=== PATIENT | male | born 1935 | race Caucasian/White ===

== ENCOUNTER 2016-08-16 15:58 | Inpatient (IN) ==
[2016-08-16] MEDS ORDERED: Aspirin 81 MG TAB.CHEW PO ONE (16:41)
--- NOTE | 2016-08-16 16:46 | Emergency Department Note ---
Disposition Clinical Impression: Congestive heart failure, AMANDA (acute kidney injury), NSTEMI (non-ST elevated myocardial infarction), Elevated troponin Disposition: Admitted As Inpatient Condition: Good General Adult HPI - General Chief complaint: ED Shortness of Breath/Dyspnea Stated complaint: Weakness, STEPHEN Time Seen by Provider: 08/16/16 16:04 Source: patient, family Mode of arrival: wheelchair Limitations: no limitations Nursing Notes Reviewed: Yes Vital Signs Reviewed: Yes - History of Present Illness Pain Scale: 0 - Related Data Allergies Allergy/AdvReac Type Severity Reaction Status Date / Time No Known Allergies Allergy Verified 08/16/16 16:02 Past Medical History - Past Medical History Medical history: Reports: atrial fibrillation, diabetes, renal disease - Social History Smoking Status: Never smoker Smokeless Tobacco Status: No Alcohol use: Reports: none Drug use: Reports: none Physical Exam - General Limitations: no limitations General appearance: alert Course Vital Signs Temperature 97.8 F 08/16/16 16:00 Pulse Rate 72 08/16/16 16:00 Respiratory Rate 18 08/16/16 16:00 Blood Pressure 117/65 08/16/16 16:00 O2 Sat by Pulse Oximetry 95 08/16/16 16:00 Temperature 97.8 F 08/16/16 16:00 Pulse Rate 64 08/16/16 18:40 Respiratory Rate 18 08/16/16 20:13 Blood Pressure 120/71 08/16/16 20:13 O2 Sat by Pulse Oximetry 99 08/16/16 18:40 Oxygen Delivery Oxygen Delivery Room Air Medical Decision Making - Medical Records none available - Lab Data Lab results reviewed: Yes I reviewed the patient's lab results. Result diagrams: 08/16/16 16:53 08/16/16 16:53 Lab Results 08/16/16 08/16/16 08/16/16 Range/Units 16:53 16:53 16:53 WBC 5.9 (4.3-11.1) K/mcL RBC 4.51 (4.19-5.50) M/mcL Hgb 13.7 (12.9-16.9) g/dL Hct 42.6 (37.5-50.1) % MCV 94.5 (83.0-100.0) fL MCH 30.4 (28.0-33.3) pg MCHC 32.2 (31.6-35.5) g/dL RDW 13.5 (11.5-14.5) % Plt Count 184 (140-400) K/mcL MPV 10.3 (9.4-12.4) fL Immature Gran % 0.3 (0-4) % Seg Neutrophils % 64.5 % Lymphocytes % 21.7 % Monocytes % 9.7 % Eosinophils % 3.1 % Basophils % 0.7 % Neutrophils # 3.8 (1.6-8.9) K/mcL Lymphocytes # 1.3 (0.6-4.6) K/mcL Monocytes # 0.6 (0.0-1.3) K/mcL Eosinophils # 0.2 (0.0-0.6) K/mcL Basophils # 0.0 (0.0-0.2) K/mcL Immature Plt Fraction 5.4 (1.1-6.1) % PT (9.4-12.1) Seconds INR APTT (26.0-36.0) Seconds Sodium 140 (136-145) mEq/L Potassium 3.6 (3.5-4.5) mEq/L Chloride 102 (98-109) mEq/L Carbon Dioxide 24 (19-29) mEq/L BUN 40 H (8-26) mg/dL Creatinine 1.91 H (0.72-1.25) mg/dL Est GFR ( Amer) 42 L (> 60) Est GFR (Non-Af Amer) 34 L (> 60) BUN/Creatinine Ratio 21 (6-26) Glucose 122 H (70-99) mg/dL Calculated Osmolality 301 H (280-300) Calcium 9.6 (8.6-10.8) mg/dL Troponin I 0.11 H* (0-0.03) ng/mL B-Natriuretic Peptide (0-100) pg/mL TSH (0.350-4.840) mcIU/mL 08/16/16 08/16/16 08/16/16 Range/Units 16:53 16:53 16:53 WBC (4.3-11.1) K/mcL RBC (4.19-5.50) M/mcL Hgb (12.9-16.9) g/dL Hct (37.5-50.1) % MCV (83.0-100.0) fL MCH (28.0-33.3) pg MCHC (31.6-35.5) g/dL RDW (11.5-14.5) % Plt Count (140-400) K/mcL MPV (9.4-12.4) fL Immature Gran % (0-4) % Seg Neutrophils % % Lymphocytes % % Monocytes % % Eosinophils % % Basophils % % Neutrophils # (1.6-8.9) K/mcL Lymphocytes # (0.6-4.6) K/mcL Monocytes # (0.0-1.3) K/mcL Eosinophils # (0.0-0.6) K/mcL Basophils # (0.0-0.2) K/mcL Immature Plt Fraction (1.1-6.1) % PT 17.9 H (9.4-12.1) Seconds INR 1.6 APTT 36.8 H (26.0-36.0) Seconds Sodium (136-145) mEq/L Potassium (3.5-4.5) mEq/L Chloride (98-109) mEq/L Carbon Dioxide (19-29) mEq/L BUN (8-26) mg/dL Creatinine (0.72-1.25) mg/dL Est GFR ( Amer) (> 60) Est GFR (Non-Af Amer) (> 60) BUN/Creatinine Ratio (6-26) Glucose (70-99) mg/dL Calculated Osmolality (280-300) Calcium (8.6-10.8) mg/dL Troponin I (0-0.03) ng/mL B-Natriuretic Peptide 513 H (0-100) pg/mL TSH 2.751 (0.350-4.840) mcIU/mL - Radiology Data Radiology results reviewed: Yes I reviewed the patient's radiology results. Attestation Statement - Attestation Attestation: I personally interviewed and examined this patient and my medical decision- making was reviewed with the ED Resident Physician, Dr. Garcia. I agree with the documented findings, disposition and treatment plan as described except to the extent set forth below. Pt is a 80 yo wm, hx CAD/a fib who presents to the ER with c/o grad worsening dyspnea and fatigue with exertion throughout the afternoon today. Pt reports that the only thing which makes it better was rest. Pt denies any episodes of CP /heaviness/pressure either INSPECTOR GLASS OR MIRROR or currently. VSS. Agree with PE findings as documented. Currently, patient is resting comfortably with family at bedside, denies any symptoms at this time no chest pain pressure no shortness of breath. Patient's EKG shows some lateral T-wave inversion concerning for some lateral ischemia, and we have no old EKG for comparison and no old prior records. Patient also with positive troponin at 0.11 in association with mild renal insufficiency. We will contact cardiology in regards to patient's management and consultation. Patient and family request to be admitted here for further cardiac evaluation.
[2016-08-16 16:59] LABS: Basophils % 0.7 %; Eosinophils # 0.2 K/mcL (0.0-0.6); Eosinophils % 3.1 %; Hematocrit 42.6 % (37.5-50.1); Hemoglobin 13.7 g/dL (12.9-16.9); Immature Granulocytes % 0.3 % (0-4); Immature Platelets 5.4 % (1.1-6.1); Lymphocytes # 1.3 K/mcL (0.6-4.6); Lymphocytes % 21.7 %; Mean Corpuscular HGB Conc 32.2 g/dL (31.6-35.5); Mean Corpuscular Hemoglobin 30.4 pg (28.0-33.3); Mean Corpuscular Volume 94.5 fL (83.0-100.0); Mean Platelet Volume 10.3 fL (9.4-12.4); Monocytes # 0.6 K/mcL (0.0-1.3); Monocytes % 9.7 %; Neutrophils # 3.8 K/mcL (1.6-8.9); Platelet Count 184 K/mcL (140-400); Red Blood Count 4.51 M/mcL (4.19-5.50); Red Cell Distribution Width 13.5 % (11.5-14.5); Segmented Neutrophils % 64.5 %
[2016-08-16 17:08] LABS: INR 1.6; Prothrombin Time 17.9 Seconds (9.4-12.1)
[2016-08-16 17:11] LABS: Activated Partial Thrombo Time 36.8 Seconds (26.0-36.0)
[2016-08-16 17:13] LABS: Calcium 9.6 mg/dL (8.6-10.8); Potassium 3.6 mEq/L (3.5-4.5)
--- NOTE | 2016-08-16 17:27 | Emergency Department Note ---
Disposition Clinical Impression: AMANDA (acute kidney injury), NSTEMI (non-ST elevated myocardial infarction), Elevated troponin Congestive heart failure Qualifiers: Congestive heart failure type: unspecified congestive heart failure type Congestive heart failure chronicity: unspecified congestive heart failure chronicity Qualified Code(s): I50.9 - Heart failure, unspecified Disposition: Admitted As Inpatient Condition: Good Referrals: NO,PCP [Primary Care Provider] - Forms: ED Satisfaction Letter Time of Disposition: 19:05 SOB HPI - General Chief Complaint: ED Shortness of Breath/Dyspnea Stated Complaint: Weakness, STEPHEN Time Seen by Provider: 08/16/16 16:04 Source: patient, family Mode of arrival: wheelchair Limitations: no limitations Nursing Notes Reviewed: Yes Vital Signs Reviewed: Yes - History of Present Illness Patient presents emergency room the care of the family for complaint of shortness of breath. He was walking up a hill S station today and got acutely short of breath. Typically does not have this issue. He has a significant cardiac history in the family is concerned about him in the ER for evaluation. Currently denying any symptoms at this point and has not had any symptoms leading up to today. Pt Subjective Complaint: shortness of breath Onset (ago): Just [employer]ISTANT Severity: mild Consistency/Duration: now resolved Improves with: rest Worsens with: exertion, movement Known history of: congestive heart failure Associated symptoms: Denies: chest pain, pain with inspiration, fever, cough, wheezing, sputum production, orthopnea, lower extremity pain, nausea/vomiting, syncope, sense of impending doom Treatment prior to arrival: none Cough present: No - Related Data Allergies Allergy/AdvReac Type Severity Reaction Status Date / Time No Known Allergies Allergy Verified 08/16/16 16:02 All systems ED: reviewed and negative except as stated. Constitutional: Denies: fever, chills Cardiovascular: Reports: dyspnea on exertion. Denies: chest pain, palpitations , orthopnea Respiratory: Denies: dyspnea, wheezes Gastrointestinal: Denies: abdominal pain, nausea, vomiting, diarrhea Genitourinary: Denies: dysuria, frequency Past Medical History - Past Medical History Attestation: Yes The following information was validated with the patient. Source: patient Medical history: Reports: atrial fibrillation, diabetes, renal disease - Social History Smoking Status: Never smoker Smokeless Tobacco Status: No Alcohol use: Reports: none Drug use: Reports: none Physical Exam - General Limitations: no limitations General appearance: alert - Chest Chest inspection: Present: normal inspection, symmetric chest wall rise. Absent : tenderness - Respiratory Respiratory exam: Present: normal lung sounds bilaterally. Absent: respiratory distress, wheezes - Cardiovascular Cardiovascular exam: Present: regular rate, normal rhythm, normal heart sounds - Abdominal Exam Abdominal exam: Present: soft, Non-Tender, normal bowel sounds. Absent: tenderness, distention, guarding, rebound, rigidity, Emerson's sign, Rovsing's sign, tenderness at McBurney's Point - Extremities Exam Extremities exam: Present: normal inspection, full ROM, normal capillary refill. Absent: tenderness, pedal edema - Back Exam Back exam: Present: normal inspection, full ROM - Neurological Exam Neurological exam: Present: alert, oriented X3, CN II-XII intact, normal gait - Skin Skin exam: Present: warm, dry, intact, normal color Course Course Narrative: Patient seen and examined the time of arrival. See history of present illness. 80-year-old male presents emergency room today with complaints of shortness of breath. Patient has a significant cardiac history including ablation approximately 6 months ago as well as several stenting. Patient denied any chest pain or other symptoms today except for that he had the shortness of breath. Patient did not have any symptoms yesterday. Patient notices symptoms today on his walking up a hill at a rest area. Patient on physical exam is in no distress his vital signs are reviewed and are stable he is afebrile. Pulse ox is normal. Head is atraumatic pupils are equal round reactive to light. Trachea is midline no visible signs of JVD or carotid bruit. Lungs are clear to auscultation bilaterally all 4 lung cunningham. Heart is regular. Abdomen is soft nontender nondistended with no guarding or rigidity. Patient has no signs of acute pitting edema. He was also 4 extremities with purpose. He has no neuromotor function deficits at this time. Pulses in the radial DP and PT distributions are normal. Physical exam is benign at this point but there is concern based on patient's medical history and symptoms that he has some aspect of decompensated heart failure. EKG collected in triage after patient arrival showing some signs of lateral ischemia with no acute signs of ST segment elevation. We do not have a comparable study at this point secondary to the patient taking care of most of his medical issues at an outside facility. Patient is currently denying chest pain or shortness of breath he is 100% symptom free while sitting in the bed. He did take one nitroglycerin prior to arrival for which he has at home for stable angina. He did not think that the medication helped with the symptoms at all. Patient is very concerning for heart failure related issues and recommended admission even on initial evaluation. Family will discuss this since she has had a workup completed at [facility] one time in the past. Patient had EKG troponin and chest x- ray labs BNP and basic chemistry panel, urinalysis. He is currently on Xarelto and takes an aspirin daily. Patient does not require acute anticoagulation at this point. Will discuss the definitive management of this patient's course of care once imaging and laboratory workup are completed. - Reevaluation(s) Reevaluation #1: Patient found to have a troponin of 0.11. Repeat EKG and evaluation at the bedside confirms that the patient does not have any acute signs of myocardial infarction. Stable ischemic changes in lateral leads noted. Patient is still currently denying chest pain. My concern is the patient has some aspect of cardiac ischemia secondary to demand or from his pulmonary issues at this point. He may require catheterization during this hospital course of care and treatment. Patient does not have appropriate cardiology follow-up with availability of interventional cardiology. We discussed this in great detail with the family. They are comfortable this time with the patient being admitted to our hospital for further evaluation and treatment course. Patient is still denying any symptoms or resting in the bed. He is currently on Xarelto and was given an aspirin here today. I will discuss with the hospitalist if they still feel the need for heparin drip to be started at this point. Otherwise the patient is stable with elevated BNP and troponin with concern for non-ST segment elevation myocardial infarction requiring further evaluation and treatment here at our facility. Hospitalist was doc and Dr. conley. Detailed review the patient's presentation symptoms of medical issues were discussed. He did not request at this time for the patient be started on heparin. We reviewed the imaging and labs as well as the presentation medical intervention and he had no other concerns at this point. Patient will be admitted. Patient is medically stable at this time. We will continue to monitor until the admission process is completed Time: 19:00 Vital Signs Temperature 97.8 F 08/16/16 16:00 Pulse Rate 72 08/16/16 16:00 Respiratory Rate 18 08/16/16 16:00 Blood Pressure 117/65 08/16/16 16:00 O2 Sat by Pulse Oximetry 95 08/16/16 16:00 Temperature 97.8 F 08/16/16 16:00 Pulse Rate 69 08/16/16 17:09 Respiratory Rate 18 08/16/16 17:09 Blood Pressure 121/69 08/16/16 17:09 O2 Sat by Pulse Oximetry 99 08/16/16 17:09 Oxygen Delivery Oxygen Delivery Room Air Shortness of Breath/Dyspnea - MDM Narrative Medical decision making narrative: Non-ST segment myocardial infarct, exertional dyspnea, elevated troponin, elevated BNP, elevated creatinine - Medical Records Medical records reviewed: Yes I reviewed the patient's medical records. - Lab Data Lab results reviewed: Yes I reviewed the patient's lab results. Result diagrams: 08/16/16 16:53 08/16/16 16:53 Lab Results 08/16/16 08/16/16 08/16/16 Range/Units 16:53 16:53 16:53 WBC 5.9 (4.3-11.1) K/mcL RBC 4.51 (4.19-5.50) M/mcL Hgb 13.7 (12.9-16.9) g/dL Hct 42.6 (37.5-50.1) % MCV 94.5 (83.0-100.0) fL MCH 30.4 (28.0-33.3) pg MCHC 32.2 (31.6-35.5) g/dL RDW 13.5 (11.5-14.5) % Plt Count 184 (140-400) K/mcL MPV 10.3 (9.4-12.4) fL Immature Gran % 0.3 (0-4) % Seg Neutrophils % 64.5 % Lymphocytes % 21.7 % Monocytes % 9.7 % Eosinophils % 3.1 % Basophils % 0.7 % Neutrophils # 3.8 (1.6-8.9) K/mcL Lymphocytes # 1.3 (0.6-4.6) K/mcL Monocytes # 0.6 (0.0-1.3) K/mcL Eosinophils # 0.2 (0.0-0.6) K/mcL Basophils # 0.0 (0.0-0.2) K/mcL Immature Plt Fraction 5.4 (1.1-6.1) % PT (9.4-12.1) Seconds INR APTT (26.0-36.0) Seconds Sodium 140 (136-145) mEq/L Potassium 3.6 (3.5-4.5) mEq/L Chloride 102 (98-109) mEq/L Carbon Dioxide 24 (19-29) mEq/L BUN 40 H (8-26) mg/dL Creatinine 1.91 H (0.72-1.25) mg/dL Est GFR ( Amer) 42 L (> 60) Est GFR (Non-Af Amer) 34 L (> 60) BUN/Creatinine Ratio 21 (6-26) Glucose 122 H (70-99) mg/dL Calculated Osmolality 301 H (280-300) Calcium 9.6 (8.6-10.8) mg/dL Troponin I 0.11 H* (0-0.03) ng/mL B-Natriuretic Peptide (0-100) pg/mL TSH (0.350-4.840) mcIU/mL 08/16/16 08/16/16 08/16/16 Range/Units 16:53 16:53 16:53 WBC (4.3-11.1) K/mcL RBC (4.19-5.50) M/mcL Hgb (12.9-16.9) g/dL Hct (37.5-50.1) % MCV (83.0-100.0) fL MCH (28.0-33.3) pg MCHC (31.6-35.5) g/dL RDW (11.5-14.5) % Plt Count (140-400) K/mcL MPV (9.4-12.4) fL Immature Gran % (0-4) % Seg Neutrophils % % Lymphocytes % % Monocytes % % Eosinophils % % Basophils % % Neutrophils # (1.6-8.9) K/mcL Lymphocytes # (0.6-4.6) K/mcL Monocytes # (0.0-1.3) K/mcL Eosinophils # (0.0-0.6) K/mcL Basophils # (0.0-0.2) K/mcL Immature Plt Fraction (1.1-6.1) % PT 17.9 H (9.4-12.1) Seconds INR 1.6 APTT 36.8 H (26.0-36.0) Seconds Sodium (136-145) mEq/L Potassium (3.5-4.5) mEq/L Chloride (98-109) mEq/L Carbon Dioxide (19-29) mEq/L BUN (8-26) mg/dL Creatinine (0.72-1.25) mg/dL Est GFR ( Amer) (> 60) Est GFR (Non-Af Amer) (> 60) BUN/Creatinine Ratio (6-26) Glucose (70-99) mg/dL Calculated Osmolality (280-300) Calcium (8.6-10.8) mg/dL Troponin I (0-0.03) ng/mL B-Natriuretic Peptide 513 H (0-100) pg/mL TSH 2.751 (0.350-4.840) mcIU/mL - Radiology Data Radiology results reviewed: Yes I reviewed the patient's radiology results. Chest x-ray stable for acute findings. No other pathology noted - EKG Data EKG attestation: Yes I reviewed and interpreted this EKG. EKG shows normal: Reports: sinus rhythm, axis, intervals, QRS complexes, ST-T waves Rate: Reports: normal Rhythm: Reports: NSR ST segment depression in: Reports: v4, v5, v6 When compared to previous EKG there are: previous EKG unavailable Interpretation: Reports: normal EKG
[2016-08-16] MEDS ORDERED: Acetaminophen 325 MG TABLET PO PRN (20:29)
[2016-08-16] MEDS ORDERED: *HR* Morphine 2 MG/ML SYRINGE IVP PRN (20:29)
[2016-08-16] MEDS ORDERED: Naloxone 0.4 MG/ML INJ IVP PRN (20:29)
[2016-08-16] MEDS ORDERED: Ondansetron 4 MG/2 ML VIAL IVP PRN (20:29)
[2016-08-16] MEDS ORDERED: Dextrose Gel 15 GM PO PRN ×2 (20:39)
[2016-08-16] MEDS ORDERED: D5% in Water 1,000 ML IVC PRN (20:39)
[2016-08-16] MEDS ORDERED: *HR* Dextrose 50 % in Water (Syg) 50 ML SYRINGE IVP PRN (20:39)
[2016-08-16] MEDS ORDERED: Nitroglycerin 0.4 MG TAB.SUBL SL PRN (20:41)
--- NOTE | 2016-08-16 21:00 | Internal Med History&Physical ---
Date of Encounter: 08/16/16 Time of Encounter: 19:45 Assessment and Plan (1) NSTEMI (non-ST elevated myocardial infarction) Current visit: Yes Status: Acute 1. History, exam, labs, and symptoms are suggestive of NSTEMI/unstable angina in my opinion. Clinically, he has no sign of CHF on exam. 2. Will cycle troponins, EKG's, and order ECHO. 3. Will initiate heparin drip in the morning -- 24 hours after last Xarelto dose as discussed with pharmacy. 4. Will provide nitrolgycerin and/or IV Morphine as needed for symptoms of angina. 5. Continue home meds as appropriate. 6. Hold beta emily due to bradycardia. 7. Consult cardiology. I anticipate he will need LHC with possible intervention. (2) CKD (chronic kidney disease) stage 3, GFR 30-59 ml/min Current visit: Yes Status: Chronic 1. Hold diuretics and any nephrotoxins. 2. Consult nephrology for CKD and for anticipation of likely contrast dye load with LHC +/- PCI. 3. Patient may need IVF, but given history of CHF, will hold IVF for now as well as diuretics. Will reassess fluid balance and intervene as necessary. 4. Discussed with Dr. Dinero. (3) Type 2 diabetes mellitus Current visit: Yes Status: Chronic 1. Hold oral diabetic meds. 2. Will use SSI and monitor glucose Q6Hr and PRN. 3. npo after midnight in anticipation of LHC. Qualifiers: Diabetes mellitus complication status: with kidney complications Diabetes mellitus complication detail: with chronic kidney disease Diabetes mellitus senior care insulin use: without senior care use Chronic kidney disease stage: stage 3 (moderate) Qualified Code(s): E11.22 - Type 2 diabetes mellitus with diabetic chronic kidney disease; N18.3 - Chronic kidney disease, stage 3 ( moderate) (4) Atrial fibrillation Current visit: Yes Status: Chronic 1. Currently in sinus rhythm. 2. Pt had ablation in the last year or two. 3. Hold BB due to bradycardia. 4. Pt chronically anti-coagulated with Xarelto. 5. Hold Xarelto and will start Heparin drip in the morning. Qualifiers: Atrial fibrillation type: paroxysmal Qualified Code(s): I48.0 - Paroxysmal atrial fibrillation (5) DVT prophylaxis Current visit: Yes Status: Acute 1. Pt took his Xarelto dose this morning. Further dosing to be stopped while in the hospital. 2. Heparin drip to be initiated in the morning. Internal Medicine - H&P: HPI Chief complaint: SOB Admitted From: Emergency Dept Plans for Post Hospital Care: Home History of present illness: Mr. Gabriel is a 80 year old male who presented to the ER today with significant and sudden onset of shortness of breath, especially with exertion. He and his and family were in the [place] area at a local park celebrating a Mother's Day picnic. He was walking up a hill at the park and developed sudden onset of dyspnea with exertion. He became diaphoretic and developed significant dyspnea. He had to stop and rest several times to catch his breath. After the third time, his daughter and coaxed him into coming to the ER. In the ER, he underwent workup including EKG, x-ray, and routine labs. Labs revealed a troponin of 0.11. EKG shows some subtle ST depression and old Q waves suggesting an old [place]V. Chest x-ray was clear. He has a history of known coronary disease and history of CHF. He was therefore admitted to hospitalist service. Upon my assessment of the patient, he is pain-free and has no shortness of breath presently. He and his and daughter reiterate the above history. He does not appear to be fluid overloaded. Based upon his history and exam, I suspect he is having unstable angina. He denies any chest pain, however. Given his CAD history, dyspnea on exertion, and diaphoresis, I strongly suspect unstable angina and/or an evolving NSTEMI. He has diabetes and known coronary disease, which puts him at much higher risk of angina and NSTEMI. [place] is from out of town, and we have no old records on him here whatsoever. I explained to him and his family my plan to initiate heparin drip and treat him conservatively for NSTEMI. Additionally, I will order routine labs including an echocardiogram. I will also consult cardiology for possible intervention. He and has and daughter voiced understanding and agreed with the plan of care. Of note, patient also takes Xarelto for a history of atrial fibrillation , and he took his last dose this morning. I called our pharmacy and they recommended starting heparin drip tomorrow morning and stopping his Xarelto for now. He also has chronic kidney disease with a baseline GFR of about 30-40. His current GFR is 34. Medications have not been updated in ER, but I was able to obtain a list from his and they include the following: Levothyroxine 25 g daily Metoprolol succinate extended release 25 g daily Calcitriol 0.25 g daily Advair discus 100/50 one puff twice a day Torsemide 10 mg daily Glimepiride 2 mg every morning and 4 mg daily at bedtime Xarelto 15 mg every morning Atorvastatin 20 mg daily at bedtime Past Med Surg Social Fam HX - Past Medical History Attestation: Yes The following information was validated with the patient. Source: patient, obtained from family Medical history: atrial fibrillation (s/p radiofrequency ablation at [facility] ~ 1 -2 years ago), coronary artery disease, diabetes, myocardial infarction (silent [place] several years ago), renal disease (CKD w baseline GFR 30- 40) Psychiatric history: no psych history - Past Surgical History Surgical History: angioplasty/stent (~ 6 years ago), orthopedic, other (shoulder ), other (radiofrequency ablation for A. Fib.) - Social History Smoking Status: Never smoker Smokeless Tobacco Status: No Alcohol use: none Drug use: none Occupational status: retired Current living situation: Home, With Family Activity Level: Independent ambulation, Very active Recent Out of Country Travel Within the Last 8 Weeks: No - Family History Mother Living Status: Hx Family Cardiac Disorders: No Father Living Status: Hx Family Cardiac Disorders: No Hx Family Cancer: Yes Internal Medicine - H&P: Meds Allergies No Known Allergies Allergy (Verified 08/16/16 16:02) - Constitutional Constitutional: no chills, no fever(s), no night sweats - EENT Eyes: no blurry vision, no change in vision Ears: no ear pain, no tinnitus Nose, mouth and throat: no nasal discharge, no sinus pain, no sinus pressure, no sore throat - Cardiovascular Cardiovascular ROS IM: diaphoresis, dyspnea, dyspnea on exertion, no chest pain , no edema, no lightheadedness, no orthopnea, no palpitations, no syncope - Respiratory Respiratory: no cough, no hemoptysis, no chest congestion, no excessive phlegm production - Gastrointestinal Gastrointestinal: no abdominal pain, no diarrhea, no hematemesis, no hematochezia, no melena, no nausea, no vomiting - Genitourinary Genitourinary ROS male: no dysuria, no flank pain, no hematuria - Musculoskeletal Musculoskeletal ROS IM: no arthralgias, no back pain - Integumentary Integumentary IM: no rash, no jaundice - Neurological Neurological ROS: no dizziness, no focal weakness, no frequent falls, no weakness - Psychiatric Psychiatric: no anxiety, no depression - Endocrine Endocrine IM: no cold intolerance, no heat intolerance, no polydipsia, no polyuria - Hematologic/Lymphatic Hematologic/Lymphatic: easy bruising (on Xarelto), no lymphadenopathy - Allergic/Immunologic Allergic/Immunologic: wheezing (rare), no GI upset with certain foods - Constitutional Vitals: Temp Pulse Resp BP Pulse Ox 97.8 F 64 18 120/71 99 08/16/16 16:00 08/16/16 18:40 08/16/16 20:13 08/16/16 20:13 08/16/16 18:40 General appearance: Present: cooperative, A&O X 3, pleasant, no acute distress, answers questions appropriately - Head Head exam: Present: atraumatic, normal inspection - Expanded Head Exam Head exam expanded: Absent: abrasion, contusion, general tenderness - Eye Eye exam: Present: EOMI, normal appearance, PERRL. Absent: scleral icterus Pupils: Present: normal accommodation - ENT ENT exam: Present: mucous membranes moist, normal exam, normal oropharynx - Neck Neck exam general surgery: Present: full ROM, supple. Absent: tenderness, thyromegaly - Expanded Neck Exam Neck exam: Absent: carotid bruit - Respiratory Respiratory exam: Present: CTAB. Absent: accessory muscle use, chest wall tenderness, rales, respiratory distress, rhonchi, wheezes - Cardiovascular Cardiovascular exam: Present: bradycardia (HR 50's), distant heart sounds, RRR, +S1, +S2. Absent: diastolic murmur, JVD, systolic murmur - GI/Abdominal GI/Abdominal exam: Present: normal bowel sounds, soft, no peritoneal signs. Absent: hepatomegaly, mass, splenomegaly, tenderness - Extremities Exam Extremities exam: Present: full ROM, warm, radial pulses palpable and symetrical. Absent: calf tenderness, joint swelling, pedal edema - Back Exam Back exam: Present: normal inspection. Absent: CVA tenderness (L), CVA tenderness (R) - Neurological Exam Neurological exam: Present: alert, CN II-XII intact, oriented X3, no focal deficits, strengths equal and symetr throughout - Psychiatric Psychiatric exam: Present: normal affect, normal mood - Skin Skin exam: Present: dry, warm. Absent: rash Internal Med - H&P Results - Labs CBC & Chem 7: 08/16/16 16:53 08/16/16 16:53 - EKG Data -: EKG Interpreted by Myself - EKG Data Prior EKG available for review: no EKG comments: 08/16/16 21:11 Sinus rhythm with PVC's; ST-T depression and flipped T waves laterally; Q waves in III and aVF suggesting old inferior [place]V; poor R wave progression suggesting old anteroseptal [place]V. - Diagnostic Studies Chest x-ray Status: image reviewed by me (negative) - VTE Reasons for not Prescribing Prophylaxis: Not indicated-Anticoagulated or INR therapeutic
[2016-08-16 21:03] LABS: Hemoglobin A1C 6.3 %
[2016-08-16] MEDS: Budesonide/Formoterol 80/4.5 MDI IH SCH (23:14)
[2016-08-17] MEDS: Insulin LISPRO 300 UNITS/3 ML VIAL SQ SCH ×4 (00:43→17:08)
[2016-08-17 04:59] LABS: Basophils % 0.7 %; Eosinophils # 0.2 K/mcL (0.0-0.6); Eosinophils % 3.9 %; Hematocrit 41.3 % (37.5-50.1); Hemoglobin 13.3 g/dL (12.9-16.9); Immature Granulocytes % 0.6 % (0-4); Lymphocytes # 1.2 K/mcL (0.6-4.6); Lymphocytes % 21.9 %; Mean Corpuscular HGB Conc 32.2 g/dL (31.6-35.5); Mean Corpuscular Hemoglobin 30.6 pg (28.0-33.3); Mean Corpuscular Volume 94.9 fL (83.0-100.0); Mean Platelet Volume 10.4 fL (9.4-12.4); Monocytes # 0.5 K/mcL (0.0-1.3); Monocytes % 9.1 %; Neutrophils # 3.4 K/mcL (1.6-8.9); Platelet Count 166 K/mcL (140-400); Red Blood Count 4.35 M/mcL (4.19-5.50); Red Cell Distribution Width 13.5 % (11.5-14.5); Segmented Neutrophils % 63.8 %
[2016-08-17 05:19] LABS: Albumin 3.3 g/dL (3.5-5.0); Albumin/Globulin Ratio 1.2 (1.1-2.2); Bilirubin,Total 1.1 mg/dL (0.2-1.2); Chol/HDL Ratio 3.2 (0-4.9); Globulin 2.7 g/dL (2.4-3.5); Magnesium 2.5 mg/dL (1.6-2.6); Potassium 3.5 mEq/L (3.5-4.5)
[2016-08-17] MEDS: Levothyroxine 25 MCG TABLET PO SCH (06:42)
--- NOTE | 2016-08-17 07:12 | Electrocardiograph Report ---
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
[2016-08-17] MEDS: Budesonide/Formoterol 80/4.5 MDI IH SCH ×2 (07:42→20:25)
[2016-08-17 08:32] LABS: Hematocrit 44.3 % (37.5-50.1); Hemoglobin 14.2 g/dL (12.9-16.9); Mean Corpuscular HGB Conc 32.1 g/dL (31.6-35.5); Mean Corpuscular Hemoglobin 30.5 pg (28.0-33.3); Mean Corpuscular Volume 95.3 fL (83.0-100.0); Mean Platelet Volume 10.3 fL (9.4-12.4); Platelet Count 173 K/mcL (140-400); Red Blood Count 4.65 M/mcL (4.19-5.50); Red Cell Distribution Width 13.5 % (11.5-14.5)
[2016-08-17 08:40] LABS: Activated Partial Thrombo Time 34.3 Seconds (26.0-36.0)
[2016-08-17 08:41] LABS: INR 1.3; Prothrombin Time 14.3 Seconds (9.4-12.1)
[2016-08-17] MEDS ORDERED: Aspirin 81 MG TAB.CHEW PO SCH (09:00)
[2016-08-17] MEDS ORDERED: *HR* Heparin 5,000 UNIT/ML VIAL IVP ONE (09:00)
[2016-08-17] MEDS ORDERED: *HR* Heparin 5,000 UNIT/ML VIAL IVP PRN ×2 (09:00)
--- NOTE | 2016-08-17 09:14 | Nephrology Consult Note ---
Date of Encounter: 08/17/16 Time of Encounter: 09:10 Assessment and Plan (1) CKD (chronic kidney disease) stage 3, GFR 30-59 ml/min Current Visit: Yes Status: Chronic Patient is a 80 year old male with history of CKD stage 3 (reported GFR baseline 33) followed by [facility]er at [facility] and type II diabetes who presented to the ED with complaint of worsening dyspnea and fatigue on exertion. Was determine to have elevated troponins, Cardiology on board. Nephrology consulted to evaluate patient prior to possible LHC. BUN 38, Cr 1.92, eGFR 24. 26.1% risk of Contrast Induced Nephropathy, 1.09% risk of needing dialysis (as calculated using [facility] ARY calculator) Continue holding diuretic. Continue renal protective strategy, avoid nephrotoxic agents. Gentle IV fluids. Recommend iso-osmotic contrast May consider giving NAC, though recent literature suggests may not be effective. Monitor kidney function to 48-72 hrs after contrast. (2) Elevated troponin Current Visit: Yes Status: Acute Patient with history of CAD s/p stents (reportedly last LHC 2011), afib s/p ablation on xarelto, and CHF who presented with increased dyspnea and fatigue on exertion. Troponins 0.1, 0.12, 0.10 EKG revealed normal sinus rhythm with t wave inversions in V4-V6. CXR no acute cardiopulmonary process Echo today EF 35-40%. Cardiology on board. Continue per Cardiology and Hospitalist plan. History of Present Illness - Reason for Consult Consult date: 08/16/16 Chronic Kidney Disease Requesting physician: Javid Bay - Chief Complaint Dyspnea - History of Present Illness Mr. Gabriel is a 80 year old male with history of CKD stage 3, CAD s/p stents ( last reportedly 2011), afib on xarelto s/p ablation, CHF (last EF 40%), type II diabetes, and hypothyroidism who presented to the ED yesterday with complaint of dyspnea and fatigue on exertion for the past 3-5 days. Reports improvement with rest. Denies chest pain, pressure, or palpitations. Troponins have been elevated at 0.11, 0.12, 0.10. EKG revealed normal sinus rhythm with t wave inversions in V4-V6. CXR revealed no acute cardiopulm process. BUN 40, Cr 1.91 , eGFR 34. Patient follows with Nephrology at [facility]. Patient reports baseline GFR of 33. Last LHC about 2011, ablation procedure in Fall 2015, no recent CT scans. This morning patient denies fevers, chills, sweats, headaches, lightheadedness, dizziness, changes in vision or hearing, nausea, vomiting, chest pain or pressure, palpitations, abdominal pain, changes in bowels or bladder, hesitancy , incomplete voiding sensation, hematuria, dysuria, flank pain, weakness, or loss of sensation. Nephrology was consulted to evaluate patient prior to possible LHC. Past Med Surg Social Fam HX - Past Medical History Medical history: atrial fibrillation, coronary artery disease, diabetes, myocardial infarction, renal disease, thyroid disease Psychiatric history: no psych history - Past Surgical History Surgical History: angioplasty/stent, orthopedic, other, other - Social History Smoking Status: Never smoker Smokeless Tobacco Status: No Alcohol use: none Drug use: none - Family History Mother Living Status: Hx Family Cardiac Disorders: No Father Living Status: Hx Family Cardiac Disorders: No Hx Family Cancer: Yes Medications and Allergies Atorvastatin Calcium [Lipitor] 20 mg PO HS 08/17/16 [History] Calcitriol [Rocaltrol] 0.25 mcg PO Q48H 08/17/16 [History] Glimepiride [Amaryl] 2 mg PO QPM 08/17/16 [History] Glimepiride [Amaryl] 4 mg PO QAM 08/17/16 [History] Levothyroxine Sodium 25 mcg PO DAILY 08/17/16 [History] Metoprolol Succinate 12.5 mg PO BID 08/17/16 [History] Nitroglycerin [Nitrostat] 0.4 mg PO Q5M PRN 08/17/16 [History] Rivaroxaban [Xarelto] 15 mg PO 1700 08/17/16 [History] Torsemide [Torsemide] 10 mg PO BID 08/17/16 [History] Allergies No Known Allergies Allergy (Verified 08/17/16 08:56) Review of Systems Constitutional: fatigue, no chills, no fever(s), no headache(s), no malaise, no weakness Nose, mouth and throat: as per HPI, no headache(s), no neck pain Cardiovascular: as per HPI, dyspnea on exertion, no chest pain, no chest pain at rest, no chest pain with activity, no edema, no leg edema, no palpitations, no pedal edema Respiratory: as per HPI, dyspnea on exertion, no dyspnea, no wheezing Gastrointestinal: as per HPI, no abdominal pain, no change in bowel habits, no diarrhea, no nausea, no vomiting Genitourinary Male: as per HPI, no change in urinary stream, no difficulty urinating, no dysuria, no hematuria, no urinary frequency, no urinary hesitancy , no urinary incontinence, no urinary urgency Musculoskeletal: as per HPI, no abnormal gait, no back pain Integumentary: as per HPI, no rash, no skin ulcer, no sores, no wounds Neurological: as per HPI, no headache(s), no numbness, no sensory deficit, no syncope, no weakness Exam - Vital Signs Vital signs: Initial Vital Signs Temp Pulse Resp BP Pulse Ox 97.8 F 72 18 117/65 95 08/16/16 16:00 08/16/16 16:00 08/16/16 16:00 08/16/16 16:00 08/16/16 16:00 Vital Signs - Last 8 Hours Temp Pulse Resp BP Pulse Ox 08/17/16 08:00 97.6 F 61 16 103/62 97 08/17/16 05:08 97.5 F L 63 20 106/65 96 Intake and Output 08/16/16 08/17/16 08/17/16 23:59 07:59 15:59 Other: Weight 86.455 kg 87.3 kg Blood Glucose* 126 82 Patient Weight 08/17/16 23:59 Weight 87.3 kg - General Appearance General appearance: well-developed, well-nourished, appears started age EENT: PERRL, mucous membranes moist Neck: no JVD, no thyromegaly, no carotid bruit, supple Respiratory: clear Cardiology: no murmurs, no edema, regular rate, irregular rhythm, normal S1, normal S2 Gastrointestinal: normoactive bowel sounds, no tenderness, no guarding Integumentary: no rash, warm and dry Neurologic: no focal deficit, no asterixis, alert and oriented x3, gait normal, strength 5/5, CN 3-12 intact Musculoskeletal: no deformities, no erythema, no cyanosis, no clubbing Psychiatric: mood/affect appropriate, cooperative Results - Lab Results 08/17/16 08:25 08/17/16 04:40 Most recent lab results Calcium 9.0 mg/dL (8.6-10.8) 08/17/16 04:40 Magnesium 2.5 mg/dL (1.6-2.6) 08/17/16 04:40 Consult Discharge Plan - Plan Referrals: NO,PCP [Primary Care Provider] -
--- NOTE | 2016-08-17 10:38 | ECHO - Doppler Report ---
Echocardiogram Name: William Gabriel Date of Study: 08/17/2016 Date: 1935 Ht: 73.0 in Medical Record#: [id number] Age: 80 Wt: 192.0 lb Gender: Male BSA: 2.11 Order #: [id number] Location: [facility] Room #: [id number] Reading Physician: Michelle Lucas DO Coil Winder: Jeffrey Rhodes RDCS Ordering Physician: Javid Bay MD Primary Physician: Lowell Rubio DO Indications: Chest pain, Myocardial infarction Impressions: LVEF 35-40%. Global LV systolic dysfunction with regional variations. Grade III/IV restrictive LV diastolic filling pattern. Mild concentric LVH. Normal RV size with moderate reduction in function. Mild mitral regurgitation. Mild tricuspid regurgitation. Mild pulmonary hypertension. Estimated RVSP was 41 mmHg. The IVC is dilated. Left Ventricular Wall Motion: Rest Echo Findings The apex, apical inferior, mid inferior, basal inferior, apical anterior, mid anterior, basal anterior, apical septal, mid inferior septal, basal inferior septal, apical lateral, mid anterior lateral, basal anterior lateral, mid anterior septal, mid inferior lateral, basal anterior septal and basal inferior lateral alegria were hypokinetic. Findings: Study Quality * Technically adequate exam. ECG Findings * Normal sinus rhythm. Left Ventricle * Mild concentric left ventricular hypertrophy. * LVEF 35-40%. * Grade III/IV restrictive diastolic filling pattern. Aorta * Normally sized aortic root. Mitral Valve * Normal mitral valve structure. * No mitral stenosis. * Mild mitral regurgitation. * Mild mitral annular calcification Aortic Valve * No aortic regurgitation. * Trileaflet aortic valve. * Normal aortic valve structure. * No aortic stenosis. Tricuspid Valve * Normal tricuspid valve structure. * Mild tricuspid regurgitation. * Estimated RA pressure is 15 mmHg. * Estimated RVSP is 41 mmHg. * Mild pulmonary hypertension. Pulmonic Valve * Pulmonic valve is not well visualized. * No pulmonic stenosis. * Trace pulmonic regurgitation. Pulmonary Artery * Pulmonary artery not well visualized. Right Atrium * Normal right atrial size. Right Ventricle * RV is normal in size with moderate reduction in function. Left Atrium * Mildly dilated left atrium. Interatrial Septum * No evidence of PFO by color Doppler. Pericardium * There is no pericardial effusion present. IVC * The IVC is dilated. * < 50% respiratory change. History Hypertension Diabetes Hypercholesteremia Family History of CAD History of CAD/PTCA Myocardial Infarction Congestive Heart Failure Measurements: BP: 103/ 62 2D Normal Values RVIDd: 3.15 cm <2.7 cm IVSd: 1.42 cm 0.6 - 1.0 cm LVIDd: 4.62 cm 3.7 - 5.6 cm LVPWd: 1.40 cm 0.6 - 1.1 cm LVIDs: 3.95 cm 1.5 - 3.6 cm AO: 2.60 cm < 4.0 cm LA: 3.90 cm 2.0 - 4.0cm %FS: 14.50 cm >25 % LA volume: 75 Mitral Valve Peak E:.90 m/sec Peak A:.32 m/sec E/A Ratio:2.8 Peak E' Lat Marek:5.87 cm/s Peak E' Med Marek:3.59 cm/s E/E' Lat Ratio:15.3 E/E' Med Ratio:25 Tricuspid Valve TV Regurg Peak Grad: 26.00mmHg TV Regurg Peak Marek: 2.53m/sec Updated by Michelle Lucas on 08/17/2016 10:31:34 AM electronically signed on 08/17/2016 10:32:47 AM with status of Final Wall Motion Feldman: 1=Normal, 2=Hypokinesis, 3=Akinesis, 4=Dyskinesis, 5=Aneurysmal, 6=Hyperkinetic, X=Not Visualized (Blank)=Missing
[2016-08-17] MEDS: Aspirin Enteric Coated 81 MG Tablet PO SCH (10:48)
[2016-08-17] MEDS: Heparin 25,000 UNIT/500 ML D5W 25,000 UNIT/500 ML MLS IVC SCH (11:16)
--- NOTE | 2016-08-17 12:28 | Cardiology Consult Note ---
Date of Encounter: 08/17/16 Time of Encounter: 12:25 Assessment and Plan (1) Cardiomyopathy Current Visit: Yes Status: Acute Patient presents with worsening exertional dyspnea. Known CKD, stable Cr. Patient reports prior EF 40% to 50% after AFL ablation at [facility]. No testing since that time. TTE here demosntrates worsening LV function; global hypokinesis with LVEF of 35- 40%. Need to obtain prior records from [facility] and [facility]. Findings discussed with patient medical therapy +/- LHC vs stress test. Patient and family favor [facility] as "want an answer.". Risks of ARY discussed. All agreeable to proceed. Plan for cautious hydration starting tonight. LHC tomorrow. Continue aspirin/plavix, heparin (24-48 hours), statin therapy. Hold BB has HR may not tolerate (60 range). Further recommendations to follow. Qualifiers: Cardiomyopathy type: unspecified Qualified Code(s): I42.9 - Cardiomyopathy , unspecified Discussion w patient/family: The assessment and plan as outlined above was discussed with the patient and/or family members who expressed understanding and agreement. All questions were answered. Thank you for involving us in the care of your patient. Please call with any questions. History of Present Illness Consult date: 08/17/16 Requesting physician: Javid Bay Consult reason: Dyspnea, elevated troponin Chief complaint: Dyspnea History of present illness: Mr. Gabriel is a 80 year old male with a history of CAD. Prior PCI at [facility] 5-6 years ago (describes 2 stents over a two year period). 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 Reports EF 40% prior to ablation, 50% after. Presents with worsening dyspnea. Usually very active, exercises etc. Recently significant dyspnea with ordinary activity, requiring him to stop for symptom relief. No chest pain reported. Mild flat troponin noted. ECG - NSR, possible previous inferior/anteroseptal [place], PVC. Appreciate nephrology input. Past Med Surg Social Fam HX - Past Medical History Medical history: atrial fibrillation, coronary artery disease, diabetes, myocardial infarction, renal disease, thyroid disease Psychiatric history: no psych history - Past Surgical History Surgical History: angioplasty/stent, orthopedic, other, other - Social History Smoking Status: Never smoker Smokeless Tobacco Status: No Alcohol use: none Drug use: none - Family History Mother Living Status: Hx Family Cardiac Disorders: No Father Living Status: Hx Family Cardiac Disorders: No Hx Family Cancer: Yes Medications and Allergies Atorvastatin Calcium [Lipitor] 20 mg PO HS 08/17/16 [History] Calcitriol [Rocaltrol] 0.25 mcg PO Q48H 08/17/16 [History] Glimepiride [Amaryl] 2 mg PO QPM 08/17/16 [History] Glimepiride [Amaryl] 4 mg PO QAM 08/17/16 [History] Levothyroxine Sodium 25 mcg PO DAILY 08/17/16 [History] Metoprolol Succinate 12.5 mg PO BID 08/17/16 [History] Nitroglycerin [Nitrostat] 0.4 mg PO Q5M PRN 08/17/16 [History] Rivaroxaban [Xarelto] 15 mg PO 1700 08/17/16 [History] Torsemide [Torsemide] 10 mg PO BID 08/17/16 [History] Allergies No Known Allergies Allergy (Verified 08/17/16 08:56) All Systems Review: A 10-system review of systems was performed and is negative for pertinent findings except as documented above in the HPI. - Cardiovascular Cardiovascular: as per HPI, dyspnea on exertion Physical Examination Vital Signs, Last 4 Hours Temp Pulse Resp BP Pulse Ox 08/17/16 11:15 97.6 F 65 16 118/71 98 General: Conversant, No Apparent Distress HEENT: Atraumatic, Normocephaly, Mucus Membranes Moist Neck: No JVD, Normal carotid pulses Cardiac: Reg Rate and Rhythm, Normal S1 and S2, No Murmur Lungs: Normal Breath Sounds, No Wheeze, Rales, Rhonchi Neuro: Alert and responsive, No focal deficits noted Abdomen: Soft, Non-Tender Skin: No rashes noted on visualized skin Musculoskeletal: No Chest Wall Tenderness Extremities: No Clubbing, No Cyanosis, No Edema Results 08/17/16 08:25 08/17/16 04:40 Lab Results 08/16/16 08/17/16 08/17/16 22:33 04:40 04:40 WBC 5.4 Hgb 13.3 Hct 41.3 Plt Count 166 INR APTT Sodium 141 Potassium 3.5 Chloride 105 Carbon Dioxide 27 BUN 38 H Creatinine 1.92 H Glucose 84 Calcium 9.0 Magnesium 2.5 Total Bilirubin 1.1 AST 26 ALT 32 Alkaline Phosphatase 81 Troponin I 0.12 H* 08/17/16 08/17/16 08/17/16 04:40 08:25 08:25 WBC 6.3 Hgb 14.2 Hct 44.3 Plt Count 173 INR 1.3 APTT 34.3 Sodium Potassium Chloride Carbon Dioxide BUN Creatinine Glucose Calcium Magnesium Total Bilirubin AST ALT Alkaline Phosphatase Troponin I 0.10 H* - Imaging and Cardiology Echo: report reviewed - EKG Interpretation EKG results cardiology: personally reviewed Consult Discharge Plan - Plan Referrals: NO,PCP [Primary Care Provider] - (Please follow up with Dr. Faria your primary DrReginald. Staff at [facility] will call back for an appointment)
--- NOTE | 2016-08-17 15:51 | Electrocardiograph Report ---
[place] [id number] Test Date: 2016-08-17 Pat Name: William Gabriel Department: 112 Room: 2A33 Gender: M Interventional Nurse: ANGELICA : 1935 Requested By: Javid Bay Order Number: [id number] Reading MD: Michelle Lucas Measurements Intervals [place] Rate: 60 P: 24 UT: 190 QRS: -48 QRSD: 114 T: 145 QT: 474 QTc: 474 Interpretive Statements SINUS RHYTHM WITH OCCASIONAL VENTRICULAR PREMATURE COMPLEXES SEPTAL MYOCARDIAL INFARCTION, PROBABLY OLD INFERIOR MYOCARDIAL INFARCTION, PROBABLY OLD MODERATE T-WAVE ABNORMALITY, CONSIDER LATERAL ISCHEMIA Electronically Signed On 08-17-2016 15:49:30 EDT by Michelle Lucas
--- NOTE | 2016-08-17 16:33 | Internal Med Progress Note ---
Date of Encounter: 08/17/16 Time of Encounter: 11:00 - Assessment and plan (1) Cardiomyopathy Current Visit: Yes Status: Acute Assessment and plan: admitted due to sob and elevated cardiac biomarkers in the setting of systolic heart failure, started on heparin drip, cardio and renal teams evaluated him, plan [facility], npo after midnight. continue asa, plavix and statins, hold bb as per cardio/ d/w patient. Qualifiers: Cardiomyopathy type: unspecified Qualified Code(s): I42.9 - Cardiomyopathy , unspecified (2) NSTEMI (non-ST elevated myocardial infarction) Current Visit: Yes Status: Acute (3) Elevated troponin Current Visit: Yes Status: Acute (4) Type 2 diabetes mellitus Current Visit: Yes Status: Chronic Assessment and plan: insulin lispro. Qualifiers: Diabetes mellitus complication status: with kidney complications Diabetes mellitus complication detail: with chronic kidney disease Diabetes mellitus assisted insulin use: without assisted use Chronic kidney disease stage: stage 3 (moderate) Qualified Code(s): E11.22 - Type 2 diabetes mellitus with diabetic chronic kidney disease; N18.3 - Chronic kidney disease, stage 3 ( moderate) (5) Atrial fibrillation Current Visit: Yes Status: Chronic Assessment and plan: s/p ablation, on xarelto, currently on hold due to heparin drip Qualifiers: Atrial fibrillation type: paroxysmal Qualified Code(s): I48.0 - Paroxysmal atrial fibrillation (6) DVT prophylaxis Current Visit: Yes Status: Acute - Subjective Interval history: admitted due to sob. known ckd - Constitutional Vitals: Temp Pulse Resp BP Pulse Ox 97.6 F 65 16 118/71 98 08/17/16 11:15 08/17/16 11:15 08/17/16 11:15 08/17/16 11:15 08/17/16 11:15 General appearance: Present: cooperative, A&O X 3, pleasant, no acute distress, answers questions appropriately - Head Head exam: Present: atraumatic, normocephalic - Eye Eye exam: Present: PERRL, conjuntiva pink, sclera anicteric Pupils: Present: PERRL - Neck Neck exam general surgery: Present: supple, trachea midline. Absent: lymphadenopathy - Respiratory Respiratory exam: Present: CTAB. Absent: accessory muscle use, rales, rhonchi, wheezes - Cardiovascular Cardiovascular exam: Present: RRR, +S1, +S2. Absent: diastolic murmur, gallop, rubs, systolic murmur - GI/Abdominal GI/Abdominal exam: Present: normal bowel sounds, soft, no peritoneal signs. Absent: distended, tenderness - Extremities Exam Extremities exam: Present: warm, radial pulses palpable and symetrical. Absent : calf tenderness, cyanotic, pedal edema - Neurological Exam Neurological exam: Present: CN II-XII intact, oriented X3, no focal deficits. Absent: pronater drift, facial droop, speech deficit - Skin Skin exam: Present: dry, intact Internal Medicine: Result - Labs CBC & Chem 7: 08/17/16 08:25 08/17/16 04:40 - ABG Interpretation ABG results: PT/INR, D-dimer PT 14.3 Seconds (9.4-12.1) H 08/17/16 08:25 - VTE Reasons for not Prescribing Prophylaxis: Not indicated-Anticoagulated or INR therapeutic Consult Discharge Plan - Plan Referrals: NO,PCP [Primary Care Provider] - 08/24/16 9:45 am (Please follow up with Dr. Faria your primary DrReginald. Staff at [facility] will call back for an appointment)
[2016-08-18] MEDS: Insulin LISPRO 300 UNITS/3 ML VIAL SQ SCH ×3 (00:34→12:54)
[2016-08-18 01:32] LABS: Basophils % 0.7 %; Eosinophils # 0.2 K/mcL (0.0-0.6); Hematocrit 40.4 % (37.5-50.1); Hemoglobin 13.2 g/dL (12.9-16.9); Immature Granulocytes % 0.4 % (0-4); Lymphocytes % 18.4 %; Mean Corpuscular HGB Conc 32.7 g/dL (31.6-35.5); Mean Corpuscular Hemoglobin 31.1 pg (28.0-33.3); Mean Corpuscular Volume 95.3 fL (83.0-100.0); Mean Platelet Volume 11.3 fL (9.4-12.4); Monocytes # 0.5 K/mcL (0.0-1.3); Monocytes % 8.8 %; Neutrophils # 3.9 K/mcL (1.6-8.9); Platelet Count 147 K/mcL (140-400); Red Blood Count 4.24 M/mcL (4.19-5.50); Red Cell Distribution Width 13.7 % (11.5-14.5); Segmented Neutrophils % 68.7 %
[2016-08-18 01:46] LABS: Calcium 8.8 mg/dL (8.6-10.8); Potassium 3.7 mEq/L (3.5-4.5)
[2016-08-18] MEDS ORDERED: 0.9 % Sodium Chloride 1,000 ML IVC SCH (05:00)
[2016-08-18] MEDS: Levothyroxine 25 MCG TABLET PO SCH (05:00)
--- NOTE | 2016-08-18 08:33 | Nephrology Progress Note ---
Date of Encounter: 08/18/16 Time of Encounter: 08:33 - Assessment and Plan (1) CKD (chronic kidney disease) stage 3, GFR 30-59 ml/min Current Visit: Yes Status: Chronic Patient is a 80 year old male with history of CKD stage 3 (reported GFR baseline 33) followed by [facility] at [facility] and type II diabetes who presented to the ED with complaint of worsening dyspnea and fatigue on exertion. Pseudo improvement of kidney function on labs this morning. Held diuretic and gave IV fluids overnight. BUN 31, Cr 1.67, GFR 40 26.1% risk of Contrast Induced Nephropathy, 1.09% risk of needing dialysis (as calculated using [facility] ARY calculator) Continue holding diuretic. Continue renal protective strategy, avoid nephrotoxic agents. Gentle IV fluids. Recommend iso-osmotic contrast One dose of NAC given this morning. Monitor kidney function to 48-72 hrs after contrast. (2) Elevated troponin Current Visit: Yes Status: Acute Patient with history of CAD s/p stents (reportedly last [facility] 2011), afib s/p ablation on xarelto, and CHF who presented with increased dyspnea and fatigue on exertion. Troponins 0.1, 0.12, 0.10 EKG revealed normal sinus rhythm with t wave inversions in V4-V6. CXR no acute cardiopulmonary process Echo revealed worsened EF 35-40%. Cardiology on board. Cardiology to proceed with C today. Continue per Hospitalist plan. Subjective Principal diagnosis: Dyspnea on exertion Interval history: Patient reports doing well overnight, no new complaints. Patient denies fevers , chills, sweats, headaches, lightheadedness, dizziness, nausea, vomiting, chest pain, shortness of breath, abdominal pain, changes in bowels or bladder, hematuria, dysuria, swelling, weakness, or loss of sensation. Cardiology note reviewed, patient to undergo LHC later today. Patient received IV fluids and held diuretic overnight with pseudo improvement of kidney function on labs. BUN 31, Cr 1.67, GFR 40 this morning. Objective - Vital Signs Vital signs: Vital Signs Temp Pulse Resp BP Pulse Ox 08/18/16 06:50 97.5 F L 64 18 115/64 99 08/18/16 03:48 98.1 F 62 18 96/61 98 08/17/16 23:54 97.8 F 69 17 107/66 98 08/17/16 20:47 99 08/17/16 20:25 18 98 08/17/16 19:50 97.5 F L 65 15 103/46 97 Intake and Output 08/17/16 08/18/16 08/18/16 23:59 07:59 15:59 Intake Total 376 / 376 152 / 152 Balance 376 / 376 152 / 152 Intake: IV Fluids 136 / 136 152 / 152 Heparin 25,000 UNIT/500 136 / 136 152 / 152 ML D5W 25,000 unit In 500 ml @ 11.603 UNITS/KG/HR 20 mls/hr IVC .Q24H [facility] Rx#:[id number] Oral 240 / 240 Other: Meal Dinner Percent of Meal Consumed 100% # Voids 1 Weight 88.1 kg Blood Glucose* 75 90 Patient Weight 08/18/16 23:59 Weight 88.1 kg - General Appearance General appearance: Present: well-developed, well-nourished, appears started age EENT: Present: PERRL, mucous membranes moist Neck: Present: no JVD, no thyromegaly, no carotid bruit, supple Respiratory: Present: clear Cardiology: Present: no murmurs, no edema, regular rate, regular rhythm, normal S1, normal S2 Gastrointestinal: Present: normoactive bowel sounds, no tenderness, no guarding , no masses Integumentary: Present: no rash, warm and dry Neurologic: Present: no focal deficit, alert and oriented x3, strength 5/5, CN 3 -12 intact Musculoskeletal: Present: no deformities, no erythema, no cyanosis, no clubbing Psychiatric: Present: mood/affect appropriate, cooperative - Lab 08/18/16 00:30 08/18/16 00:30 Most recent lab results Calcium 8.8 mg/dL (8.6-10.8) 08/18/16 00:30 Magnesium 2.5 mg/dL (1.6-2.6) 08/17/16 04:40 - VTE Reasons for not Prescribing Prophylaxis: Not indicated-Anticoagulated or INR therapeutic Consult Discharge Plan - Plan Referrals: NO,PCP [Primary Care Provider] - 08/24/16 9:45 am (Please follow up with Dr. Faria your primary DrReginald. Staff at [facility] will call back for an appointment)
[2016-08-18] MEDS ORDERED: *HR* Acetylcysteine 20% 600 MG/3 ML ORAL SYRINGE PO SCH (09:00)
[2016-08-18] MEDS: Aspirin Enteric Coated 81 MG Tablet PO SCH (09:40)
[2016-08-18] MEDS: Heparin 25,000 UNIT/500 ML D5W 25,000 UNIT/500 ML MLS IVC SCH (09:46)
[2016-08-18] MEDS: Budesonide/Formoterol 80/4.5 MDI IH SCH (10:27)
--- NOTE | 2016-08-18 11:26 | Event Note ---
Date of Encounter: 08/18/16 Time of Encounter: 11:24 Patient seen and examined earlier today. No new symptoms reported. Results of echocardiogram reviewed with patient; LVEF 35-40%. Given symptoms, history of CAD/prior PCI, and CMP, a LHC was recommended. Patient agreeable to this plan. Hydration given prior to cath. NAC ordered by nephrology. Thanks, Len Sanchez DO, FACC
[2016-08-18] MEDS ORDERED: *HR* Heparin 10,000 UNIT/10 ML VIAL ONE (12:40)
[2016-08-18] MEDS ORDERED: Heparin 1,000 UNITS/500 mL NS 500 ML ONE (12:40)
[2016-08-18] MEDS ORDERED: Nitroglycerin 1,000 MCG/10 ML VIAL IV ONE (12:40)
[2016-08-18] MEDS ORDERED: Verapamil 5 MG/2 ML VIAL ONE (12:40)
[2016-08-18] MEDS ORDERED: 0.9 % Sodium Chloride 1,000 ML ONE ×2 (12:40→13:22)
[2016-08-18] MEDS ORDERED: *HR* Midazolam HCl 2 MG/2 ML VIAL ONE (13:21)
[2016-08-18] MEDS ORDERED: *HR* FentaNYL (PF) 100 MCG/2 ML VIAL ONE (13:22)
--- NOTE | 2016-08-18 13:30 | Pre-Sedation Evaluation ---
Pre-sedation evaluation - Pre-sedation checklist Date of procedure: 08/18/[address] [facility] Recent Vitals: Last Vital Signs Temp 97.8 F 08/18/16 11:10 Pulse 62 08/18/16 11:10 Resp 16 08/18/16 11:10 BP 122/74 08/18/16 11:10 Pulse Ox 100 08/18/16 11:10 H&P (including ROS) documented in medical record: Yes Previous reaction to sedatives/anesthetics: No Dietary Status: NPO 6 hours prior to procedure Dentition: No loose teeth or bridges ASA Classification *see protocol: CLASS II-Mild systemic disease Plan of Care: Pt appropriate candidate for procedure/moderate/conscious sedation , Risks/benefits of procedure/sedation discussed w/ patient/family
--- NOTE | 2016-08-18 14:09 | Invasive Diagnostic Lab Proc ---
Name: William Gabriel Date of Study: 08/18/2016 Date: 1935 Ht: 72.8in Medical Record#: [id number] Age: 80 Wt: 194.01lb Gender: Male BSA: 2.12 Order #: [id number] BMI: 25.71 Physicians Procedure Physician: Da Griffin MD, FACC Referring MD: Referring MD: Staff Name Position Time In Renetta Coffman RN Monitor 01:34 PM Stefani Jeong RN Traveling Clerk 01:34 PM Liyah Teresa RT (R) Scrub 01:34 PM Indications Indication Non-Stemi Procedures Performed Procedure L HRT ARTERY/VENTRICLE ANGIO Pre-Procedure Checklist Informed consent is complete signed and on chart. H\\T\\P is on chart. ID band is on and ID verified with patient. Patient NPO for procedure The procedure was described for the patient and questions were answered. Blood Pressure: 115/64 ECG is on chart. Rhythm: NSR Plan of Care Patient will tolerate the procedure without complications. Adequate level of comfort will be maintained. Hemodynamics will remain stable Patient will recover from procedure without complications. Respiratory function will be maintained. Cardiac rhythm will remain stable. Patient temperature will be maintained. Patient and/or family have verbalized understanding of the procedure. Patient Education Chief Complaint/Reason for Test: Cardiac Cath Developmental Category: Geriatric (65+ years) Developmentally Appropriate for Age: Yes Learning Barriers: None Education Needs: Procedure Education Method: Verbal Information Taught: Cardiac Cath Educational Evaluation: Able to repeat information Intravenous Access Time IV Size Location DC'd Fluid/Drip Rate Units RN 01:30 PM 20g 1 04/08" Patent On Arrival Rt Antecubital 0.9NaCl 25 ml/hr Renetta Coffman RN Allergies No Known Allergies Vital Signs Time BP (mmHg) HR (bpm) O2 Sat. RR (bpm) LOC 115 / 64 64 99 % 5 = Fully awake and oriented or at pre-proc level 01:31 PM / % 5 = Fully awake and oriented or at pre-proc level 01:32 PM / % 4 = Oriented but drowsy 01:28 PM 127 / 76 63 99 % 25 01:33 PM 129 / 76 70 98 % 22 01:38 PM 129 / 69 68 98 % 15 01:43 PM 130 / 77 69 98 % 17 01:48 PM 117 / 64 63 97 % 15 01:53 PM 112 / 60 67 97 % 25 Procedural Medications Time Medication Dose Units Method Given By 01:31 PM Oxygen 2 L/min nasal cannula Renetta Coffman RN 01:32 PM Versed 2 mg Intravenous Elizabeth Riggs RN 01:32 PM Fentanyl 50 mcg Intravenous Elizabeth Riggs RN 01:40 PM Lidocaine 2% 1 ml Subcutaneous Da Griffin MD, [facility] 01:42 PM 0.9NaCl 100 ml/hr Intravenous Elizabeth Riggs RN 01:43 PM Heparin 4000 units Nitroglycerin 200 mcg Verapamil 2.5 mg Intraarterial Da Griffin MD, [facility] ASA Classification: CLASS II- Mild systemic disease (i.e. well-controlled diabetes, hypertension, asthma, cigarette smoking) Joshua Score Preprocedure Postprocedure Activity 2- Moves 4 extremities sustained head lift Activity 2- Moves 4 extremities sustained head lift Circulation 2- SBP +/= 20 points of pre-anesthetic level Circulation 2- SBP +/= 20 points of pre-anesthetic level Consciousness 2- Awake and alert oriented x 3 Consciousness 2- Awake and alert oriented x 3 O2 Saturation 2- Able to maintain O2 satruation of 92% on room air O2 Saturation 2- Able to maintain O2 satruation of 92% on room air Respiratory 2- Able to deep breathe and cough well Respiratory 2- Able to deep breathe and cough well Total Score 10 Total Score 10 Contrast Agent: Isovue Diagnostic Contrast: 25 ml Total Contrast: 25 ml Fluoro Dose: 124 mGy Procedure Log Time Note Enter By 12:55 PM CathStat 01:27 PM Vitals capture started with the following parameters, Patient=Adult, Interval=5 min, Initial Mweiscgt=060 mmHg, Deflation Rate=5 mmHg, Cuff placed on Right Arm 01:28 PM HR=63 bpm, KLOZ=896/76 mmhg, SpO2=99.0 %, Resp=25 B/min, Comment=nsr 01:30 PM Pt arrived to cardiac cath lab radiology technologist 2 at 13:30 tsites 01:30 PM Patient charges- Angio tray pack, Navilyst 3mm J, Pulse Oximetry and ACIST tubing and transducer tsites 01:30 PM Case Delayed No, Inpatient tsites 01:31 PM Reference ECG taken 01:31 PM Recorded ECG: HR=68 Condition=Condition 1 01:31 PM Physician arrived 13:31 tsites 01:31 PM ASA Class CLASS II- Mild systemic disease (i.e. well-controlled diabetes, hypertension, asthma, cigarette smoking) tsites : PM Meet and greet completed ites : PM Sign in performed according to hospital policy. tsites 01:31 PM Procedure start 13:31 ites : PM Time: 13:31 Oxygen on at 2 L/min per nasal cannula by Renetta Coffman RN ites : PM Time: 13:31 Patient comfortable and pain free: Yes :32 PM Time: 13:31LOC: 5 = Fully awake and oriented or at pre-proc level tsites :32 PM Time: 13:32 Versed 2 mg Intravenous Given by Elizabeth Riggs RN :32 PM Time: 13:32 Fentanyl 50 mcg Intravenous Given by Elizabeth Riggs RN ites :33 PM HR=70 bpm, SVFW=135/76 mmhg, SpO2=98.0 %, Resp=22 B/min, Comment=nsr 01:34 PM Renetta Coffman RN Position: Monitor Time in: 13:34 01:34 PM Stefani Jeong RN Position: Traveling Clerk Time in: :34 ites 01:35 PM Liyah Teresa (R) Position: Scrub Time in: :34 tsites 01:35 PM Clinical Presentation: Non-STEMI tsites 01:38 PM HR=68 bpm, WAMU=777/69 mmhg, SpO2=98.0 %, Resp=15 B/min, Comment=nsr 01:40 PM Time out performed according to hospital policy ts:41 PM Time: 13:40 1 ml Lidocaine 2% to right radial Subcutaneous Given by Da Griffin MD, [facility] :42 PM Time: 13:42 0.9NaCl 100 ml/hr Intravenous Given by Elizabeth Riggs RN tsites :43 PM Access obtained by percutaneous puncture. 6Fr 11cm Terumo Glidesheath sheath placed in right Radial artery. [id number] tsites :43 PM HR=69 bpm, ZCUM=114/77 mmhg, SpO2=98.0 %, Resp=17 B/min, Comment=nsr :43 PM Time: 13:43 Patient given 4,000 units Heparin, 200 mcg Nitroglycerin, and 2.5 mg Verapamil Intraarterial by Da Griffin MD, [facility] tsites 01:43 PM Pressure channel 1 zero failed. 01:44 PM Pressure channel 1 zeroed. 01:44 PM 5Fr FR 4 catheter inserted over the wire [facility] tsites 01:46 PM RCA angiography performed in multiple views. tsites 01:46 PM Recorded Pressure: Ao, HR=73, Condition=Condition 1 (Aorta) Ao 102/72/86 01:46 PM Catheter removed tsites 01:46 PM 5Fr FL3.5 catheter inserted over the wire [id number] tsites 01:46 PM Time: 13:31 Patient comfortable and pain free: Yes tsites 01:47 PM Time: 13:32LOC: 4 = Oriented but drowsy tsites 01:47 PM LCA angiography performed in multiple views. tsites 01:48 PM Recorded Pressure: Ao, HR=70, Condition=Condition 1 (Aorta) Ao 110/72/89 01:48 PM HR=63 bpm, GMUX=508/64 mmhg, SpO2=97.0 %, Resp=15 B/min, Comment=nsr 01:48 PM Coronary Dominance: Left tsites 01:48 PM Recorded Pressure: Ao, HR=70, Condition=Condition 1 (Aorta) Ao 107/71/88 01:50 PM Lesion found in Proximal LAD. Pre Stenosis: 20 Pre DEBORA Flow: tsites 01:50 PM Lesion found in Mid LAD. Pre Stenosis: 30 Pre DEBORA Flow: tsites 01:50 PM Lesion found in Mid Circumflex. Pre Stenosis: 30 Pre DEBORA Flow: tsites 01:50 PM Lesion found in Proximal Circumflex. Pre Stenosis: 30 Pre DEBORA Flow: tsites 01:50 PM Catheter removed tsites 01:50 PM 5Fr Pigtail catheter inserted over the wire DN tsites 01:52 PM Recorded Pressure: LV, HR=69, Condition=Condition 1 (Left Ventricle) LV 121/18/30 01:53 PM Recorded Pressure: LV, Ao, HR=65, Condition=Condition 1 (Left Ventricle) LV 117/15/28, (Aorta) Ao 114/60/85 01:53 PM HR=67 bpm, FOXI=407/60 mmhg, SpO2=97.0 %, Resp=25 B/min, Comment=nsr 01:53 PM Catheter removed tsites 01:53 PM Procedure completed at 13:53 tsites 01:55 PM Sign out completed: Radiation Dose 124 mGy Fluoro Time: 1.3 Isovue 370 - 200ml contrast 25 ml given by Da Griffin MD, [facility]. Complications: NoneCardiac Rehab Consult needed: YesConfirmed administered medications: Yes tsites 01:55 PM Arterial sheath pulled, Mynx closure device used and was Successful S/N. tsites 01:55 PM 11 ml air in Vasc Band. tsites 01:55 PM Post ECG NSR tsites 01:55 PM Post Blood Pressure 112/60 tsites 01:56 PM 13:55 Post Pulses Rt Radial 1+ tsites 01:56 PM Information taught Cardiac Cath and Vasc Band tsites 01:56 PM Education needs Procedure, Plan of Care, and Responsibilities of Patient in Care tsites 01:56 PM Learning barriers :None tsites 01:56 PM Education Methods Verbal tsites 01:57 PM Education evaluation Able to repeat information tsites 01:57 PM Site status No bleeding/hematoma - Rt Wrist as reported by Sites, Liyah RT (R) at 13:57 tsites 01:57 PM Opsite applied tsites 01:58 PM Report given to Lorena SANCHEZ Pt taken to 2A Room #33. 13:57 tsites 01:59 PM Plavix, Effient or Brilinta given No tsites 01:59 PM Delay to floor No tsites 01:59 PM Family placed in consult room. tsites 01:59 PM Complications: None tsites 02:00 PM Proximal Left Anterior Descending Coronary Artery with 20% stenosis. If graft is supplying this territory, 0 % stenosis. tsites 02:00 PM Mid/Distal Left Anterior Descending Coronary Artery and diagonal branches with 30% stenosis. If graft is supplying this area, 0 % stenosis tsites 02:00 PM Circumflex, Obtuse Marginal, Left Posterior Descending, and Left Posterolateral Coronary Arteries with 30 % stenosis. If graft is supplying this area, 0 % stenosis tsites 02:01 PM Time: 13:46 Patient comfortable and pain free: Yes tsites 02:02 PM Patient out of room: 14:02 tsites Complications Complication None None Hemodynamics Pressures Site Systolic/A Wave Diastolic/V Wave Mean AO 102 72 86 AO 110 72 89 AO 107 71 88 LV 121 18 30 LV 117 15 28 AO 114 60 85 Post Procedure Information Blood Pressure: 112/60 mmHg Rhythm: NSR Post procedural instructions were given Closure Device Time Device Success/Fail 08/18/2016 2:01:00 PM Mechanical Compression Successful Site Checks Time Location Status Staff Sheath In? Note 01:57 PM Rt Wrist No bleeding/hematoma Sites, Liyah RT (R) Pulses Time Site Pre-Procedure Post-Procedure Note 08/18/2016 1:30:00 PM Bilateral radial 2+ 08/18/2016 1:30:00 PM Bilateral DP \\T\\ PT 1+ 1:55:00 PM Rt Radial 1+ Updated by Liyah Sites, RT (R) on 08/18/2016 2:04:29 PM Liyah Sites, RT electronically signed on 08/18/2016 2:05:13 PM with status of Final
[2016-08-18] MEDS ORDERED: Metoprolol XL (24 HR) Succ 25 MG TAB.ER.24H PO SCH (14:30)
--- NOTE | 2016-08-18 14:32 | Event Note ---
Date of Encounter: 08/18/16 Time of Encounter: 14:30 - Cardiology Event Note Per discussion with Dr. Griffin, patent stent to LAD and no lesions requiring intervention. Avg HR 66 on tele past 24 hrs. On Lopressor at home. Will add back BB-- Toprol XL 12.5mg PO daily. Cardiology will sign off, f/u as outpatient with his primary medical record technician or with [facility] in 2-3 weeks. Rec repeat echo in outpatient setting. Discussed with Dr. Sanchez.
[2016-08-18 15:09] VITALS: BP 132/70
--- NOTE | 2016-08-18 15:30 | Discharge Summary ---
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 Chronic kidney disease stage: stage 3 (moderate) Qualified Code(s): E11.22 - Type 2 diabetes mellitus with diabetic chronic kidney disease; N18.3 - Chronic kidney disease, stage 3 ( moderate) (5) Atrial fibrillation Priority: Secondary Status: Chronic Qualifiers: Atrial fibrillation type: paroxysmal Qualified Code(s): I48.0 - Paroxysmal atrial fibrillation (6) DVT prophylaxis Priority: Secondary Status: Acute - Discharge Medications Prescriptions: Metoprolol XL (24 HR) Succ [Toprol XL] 12.5 mg PO DAILY 30 Days Home Medications: Atorvastatin Calcium [Lipitor] 20 mg PO HS 08/17/16 [History] Calcitriol [Rocaltrol] 0.25 mcg PO Q48H 08/17/16 [History] Glimepiride [Amaryl] 2 mg PO QPM 08/17/16 [History] Glimepiride [Amaryl] 4 mg PO QAM 08/17/16 [History] Levothyroxine Sodium 25 mcg PO DAILY 08/17/16 [History] Nitroglycerin [Nitrostat] 0.4 mg PO Q5M PRN 08/17/16 [History] Rivaroxaban [Xarelto] 15 mg PO 1700 08/17/16 [History] Torsemide 10 mg PO BID 08/17/16 [History] Metoprolol XL (24 HR) Succ [Toprol XL] 12.5 mg PO DAILY 30 Days 08/18/16 [Rx] Allergies/Adverse Reactions: Allergies No Known Allergies Allergy (Verified 08/17/16 08:56) Date of admission: 08/17/16 14:49 Primary care physician: PCP NO Discharging clinician: Atul Stanley Anticipated date of discharge: 08/18/16 - Patient Status Disposition: Home, Self-Care Condition: Good Functional capacity at discharge: independent ambulation Overall status at discharge: patient is back to baseline - Discharge Instructions Follow Up With: Dr. Giana [Other] - 08/24/16 9:45 am Cardiology [facility] [Provider Group] (office will call patient with follow up appointment date and time) - Diet and Activity Activity: increase activity as tolerated Interval History: Mr. Gabriel is a 80 year old male who presented to the ER today with significant and sudden onset of shortness of breath, especially with exertion. He and his and family were in the [place] area at a local park celebrating a Mother's Day picnic. He was walking up a hill at the park and developed sudden onset of dyspnea with exertion. He became diaphoretic and developed significant dyspnea. He had to stop and rest several times to catch his breath. After the third time, his daughter and coaxed him into coming to the ER. In the ER, he underwent workup including EKG, x-ray, and routine labs. Labs revealed a troponin of 0.11. EKG shows some subtle ST depression and old Q waves suggesting an old GA. Chest x-ray was clear. He has a history of known coronary disease and history of CHF. He was therefore admitted to hospitalist service. Upon my assessment of the patient, he is pain-free and has no shortness of breath presently. He and his and daughter reiterate the above history. He does not appear to be fluid overloaded. Based upon his history and exam, I suspect he is having unstable angina. He denies any chest pain, however. Given his CAD history, dyspnea on exertion, and diaphoresis, I strongly suspect unstable angina and/or an evolving NSTEMI. He has diabetes and known coronary disease, which puts him at much higher risk of angina and NSTEMI. [place] is from out of town, and we have no old records on him here whatsoever. I explained to him and his family my plan to initiate heparin drip and treat him conservatively for NSTEMI. Additionally, I will order routine labs including an echocardiogram. I will also consult cardiology for possible intervention. He and has and daughter voiced understanding and agreed with the plan of care. Of note, patient also takes Xarelto for a history of atrial fibrillation , and he took his last dose this morning. I called our pharmacy and they recommended starting heparin drip tomorrow morning and stopping his Xarelto for now. He also has chronic kidney disease with a baseline GFR of about 30-40. His current GFR is 34. Medications have not been updated in ER, but I was able to obtain a list from his and they include the following: Levothyroxine 25 g daily Metoprolol succinate extended release 25 g daily Calcitriol 0.25 g daily Advair discus 100/50 one puff twice a day Torsemide 10 mg daily Glimepiride 2 mg every morning and 4 mg daily at bedtime Xarelto 15 mg every morning Atorvastatin 20 mg daily at bedtime Hospital course: Mr. Gabriel is a 80 year old male admitted dut to shortness of breath, history of cad. Evalated by cardiology in light of mild trop elevation. Patent stent to LAD and no lesions requiring intervention. Avg HR 66 on tele past 24 hrs. REsume home meds. On Lopressor at home. Will add back BB-- Toprol XL 12.5mg PO daily. 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 Rec repeat echo in outpatient setting. D/ C home today. D/W patient - Time Spent with Patient Total time spent providing and/or coordinating discharge services: - Constitutional Vitals: Temp Pulse Resp BP Pulse Ox 97.8 F 63 16 111/70 99 08/18/16 11:10 08/18/16 14:29 08/18/16 14:29 08/18/16 14:29 08/18/16 14:29 General appearance: Present: cooperative, A&O X 3, pleasant, no acute distress, answers questions appropriately - Head Head exam: Present: atraumatic, normocephalic - Eye Eye exam: Present: PERRL, conjuntiva pink, sclera anicteric Pupils: Present: PERRL - Neck Neck exam general surgery: Present: supple, trachea midline. Absent: lymphadenopathy - Respiratory Respiratory exam: Present: CTAB. Absent: accessory muscle use, rales, rhonchi, wheezes - Cardiovascular Cardiovascular exam: Present: RRR, +S1, +S2. Absent: diastolic murmur, gallop, rubs, systolic murmur - GI/Abdominal GI/Abdominal exam: Present: normal bowel sounds, soft, no peritoneal signs. Absent: distended, tenderness - Extremities Exam Extremities exam: Present: warm, radial pulses palpable and symetrical. Absent : calf tenderness, cyanotic, pedal edema - Neurological Exam Neurological exam: Present: CN II-XII intact, oriented X3, no focal deficits. Absent: pronater drift, facial droop, speech deficit - Skin Skin exam: Present: dry, intact - VTE Reasons for not Prescribing Prophylaxis: Not indicated-Anticoagulated or INR therapeutic
--- NOTE | 2016-08-18 16:05 | Invasive Diagnostic Lab ---
Name: William Gabriel Date of Study: 08/18/2016 Date: 1935 Ht: 185.0 cm /72.8 in Medical Record#: [id number] Age: 80 Wt: 88. kg / 194.01 lb Account/Order#: [id number] Gender: Male BSA: 2.12 Order #: [id number] Fluoro Dose: 124 mGy BMI: 25.71 Procedure Physician: Da Griffin MD, FACC Referring MD: Referring MD: Procedures Performed: LEFT HEART CATH Indications: Non-Stemi Impressions: There is mild two vessel coronary artery disease with patent LAD stent Recommendations: Optimal medical therapy of patient's disease. Aggressive risk factor modification. Patient being referred for cardiac rehab. History/Risk Factors: CAD SOB CKD NSTEMI CP Diabetes Prior NH Previous PCI Procedure Access obtained in the right Radial artery by percutaneous puncture Complications: None, None Contrast: Isovue 25ml Closure Device: Mechanical Compression Hemodynamics: Pressures Site Systolic/ A Wave Diastolic/ V Wave End Diastolic/ Mean HR AO 102 72 86 73 AO 110 72 89 70 AO 107 71 88 70 LV 121 18 30 69 LV 117 15 28 65 AO 114 60 85 65 Coronary Dominance: Left Lesion Findings/Interventions * Left Main Coronary Artery The LMCA is angiographically free of disease. * Left Anterior Descending There is a 20% stenosis in the Proximal LAD. Patent stent There is a 30% stenosis in the Mid LAD. * Circumflex There is a 30% stenosis in the Proximal Circumflex. There is a 30% stenosis in the Mid Circumflex. * Right Coronary Artery The RCA is angiographically free of disease. The Right Coronary Artery is small in size.. Updated by RT Lb (R) on 08/18/2016 2:04:03 PM Da Griffin MD, FACC electronically signed on 08/18/2016 3:59:33 PM with status of Final
[2016-08-18] MEDS ORDERED: Insulin LISPRO 300 UNITS/3 ML VIAL SQ SCH ×2 (16:30→21:00)
== END 2016-08-18 16:50 | disposition home or self-care (01) | DRG 281 ==
LOC: EMEROO 15:58 → 2ANU 15:58
PROVIDERS: ADMIT Internal Medicine; ATTEND Internal Medicine